=== PATIENT | female | born 1995 | race Caucasian/White ===

== ENCOUNTER 2020-03-07 23:51 | Emergency (ER) | payer MEDICAID ==
[~2020-03-07] VITALS: Ht 152.4 cm; Wt 50.0 kg
[2020-03-08] MEDS ORDERED: SODIUM CHLORIDE 0.9% 1,000 ML IV ONE (00:25)
[2020-03-08] MEDS ORDERED: BACITRACIN ZINC OINT UDPKT TOP ONE (00:30)
[2020-03-08] MEDS ORDERED: TETANUS, DIPHTHERIA, PERTUSSIS VAC/PF 0.5ML (>7YR OLD) IM ONE (00:30)
[2020-03-08] MEDS ORDERED: ACETAMINOPHEN 325MG TABLET PO ONE (00:30)
[2020-03-08] MEDS ORDERED: LIDOCAINE 1%/EPI 1:100,000 10 ML VIAL IJ ONE (00:30)
[2020-03-08 00:45] VITALS: BP 102/40
[2020-03-08] MEDS ORDERED: LIDOCAINE HCL/EPINEPHRINE 1%-EPI 1:100,000 20 ML VIAL INFIL NR (00:45)
[2020-03-08 00:52] LABS: BASOPHILS % 0.6 % (0.0-2.0); EOSINOPHILS % 0.8 % (0.0-5.0); HEMATOCRIT. 42.4 % (36.0-48.0); HEMOGLOBIN. 14.7 g/dL (12.0-16.0); LYMPHOCYTES % 25.3 % (20.0-50.0); MEAN CORPUSCULAR HEMOGLOBIN 31.7 pg (28.0-32.0); MEAN CORPUSCULAR VOLUME 91.6 fL (81.0-99.0); MEAN PLATELET VOLUME 9.8 fl (7.4-10.4); MONOCYTES % 5.1 % (2.0-8.0); NEUTROPHILS % 68.2 % (40.0-76.0); PLATELET 228 x1000/uL (130-400); RED BLOOD CELL COUNT 4.63 mill/uL (4.2-5.4); RED CELL DISTRIBUTION WIDTH 13.6 % (11.6-14.6)
[2020-03-08 01:00] LABS: CHLORIDE 107 mEq/L (98-107)
[2020-03-08 01:08] LABS: HCG SCREEN NEGATIVE
== END 2020-03-08 03:04 | disposition home or self-care (01) ==
LOC: ER 23:51
DX: S01.81XA Laceration without foreign body of other part of head, initial encounter (principal); R55 Syncope and collapse; M25.521 Pain in right elbow; W18.39XA Other fall on same level, initial encounter; Y93.89 Activity, other specified; Y92.89 Other specified places as the place of occurrence of the external cause; Y99.8 Other external cause status; Z98.890 Other specified postprocedural states
CPT/HCPCS: 12011; 36415; 73080; 80053; 81025; 84703; 85025; 90471; 90715; 93005; 96360; 99285; J3490; J7030

== ENCOUNTER 2023-08-06 18:20 | Emergency (ER) | payer MEDICAID ==
[~2023-08-06] VITALS: Ht 152.4 cm; Wt 50.0 kg
[2023-08-06 18:36] VITALS: BP 154/77; PULSE 110; RESP 16; TEMP 98.5; O2SAT 100
[2023-08-06] MEDS ORDERED: BENZ5.1G TOP (19:57)
== END 2023-08-06 20:29 | disposition home or self-care (01) ==
LOC: ER 18:20
DX: K12.0 Recurrent oral aphthae (principal)
CPT/HCPCS: 99283

== ENCOUNTER 2024-04-12 15:18 | Emergency (ER) | payer MEDICAID ==
[~2024-04-12] VITALS: Ht 149.9 cm; Wt 46.7 kg
[~2024-04-12 15:18] MED LIST: BENZ5.1G TOP
[2024-04-12 15:37] VITALS: O2SAT 99
[2024-04-12 18:14] LABS: CLARITY URINE CLOUDY (CLEAR); COLOR URINE YELLOW (YELLOW); GLUCOSE URINE NEGATIVE (NEGATIVE); KETONES URINE 2+ (NEGATIVE); LEUKOCYTE ESTERASE URINE 2+ (NEGATIVE); NITRITE URINE POSITIVE (NEGATIVE); OCCULT BLOOD URINE 3+ (NEGATIVE); PROTEIN URINE 2+ (NEGATIVE); UROBILINOGEN URINE 0.2 E.U./dL (0.2-1.0)
[2024-04-12] MEDS ORDERED: NITR-87 MT (18:24)
[2024-04-12] MEDS ORDERED: PHEN-815 MT (18:24)
[2024-04-12 18:46] LABS: BACTERIA URINE 1+; SQUAMOUS EPITHELIAL CELL URINE 1+ /lpf (RARE/1+)
[2024-04-12 18:49] VITALS: BP 127/65; PULSE 71; RESP 16; TEMP 98.1
== END 2024-04-12 18:51 | disposition home or self-care (01) ==
LOC: ER 15:18
DX: N30.00 Acute cystitis without hematuria (principal)
CPT/HCPCS: 81003; 99283

== ENCOUNTER 2025-09-10 15:07 | Emergency (ER) | payer MEDICAID ==
[~2025-09-10] VITALS: Ht 152.4 cm; Wt 49.0 kg
[~2025-09-10 15:07] MED LIST changes: +NITR-87 MT; +PHEN-815 MT
[2025-09-10 15:17] VITALS: O2SAT 98
[2025-09-10] MEDS: IBUPROFEN 600MG TABLET PO ONE (18:00)
[2025-09-10 18:56] LABS: CLARITY URINE CLEAR (CLEAR); COLOR URINE YELLOW (YELLOW); GLUCOSE URINE NEGATIVE (NEGATIVE); KETONES URINE NEGATIVE (NEGATIVE); LEUKOCYTE ESTERASE URINE TRACE (NEGATIVE); NITRITE URINE NEGATIVE (NEGATIVE); OCCULT BLOOD URINE TRACE (NEGATIVE); PH URINE 6.5 (4.5-8.0); PROTEIN URINE NEGATIVE (NEGATIVE); SPECIFIC GRAVITY URINE 1.001 (1.005-1.030); UROBILINOGEN URINE 0.2 E.U./dL (0.2-1.0)
[2025-09-10 19:12] LABS: BACTERIA URINE RARE; RBC URINE NONE SEEN /hpf (0-2); SQUAMOUS EPITHELIAL CELL URINE FEW /lpf (RARE/1+)
[2025-09-10] MEDS ORDERED: TOPUD MT (19:40)
[2025-09-10] MEDS ORDERED: ACYC-58 MT (19:40)
[2025-09-10] MEDS ORDERED: DOXY100C5 MT (19:40)
[2025-09-10] MEDS: AZITHROMYCIN 500 MG TABLET PO ONE (20:06)
[2025-09-10] MEDS: GENTAMICIN SULF 40MG/ML 2ML VIAL IM ONE (20:07)
[2025-09-10] MEDS: ONDANSETRON 4MG ODT PO ONE (20:07)
[2025-09-10 20:17] VITALS: BP 138/81; PULSE 103; RESP 18; O2SAT 99
[2025-09-10 20:50] LABS: HCG SCREEN NEGATIVE
[2025-09-12 04:07] LABS: HSV TYPE 2 SPECIFIC AB IGG Non Reactive (Non Reactive)
[2025-09-13 04:11] LABS: CHLAMYDIA TRACHOMATIS NAA Negative (Negative); NEISSERIA GONORRHOEAE NAA Negative (Negative)
== END 2025-09-10 20:17 | disposition home or self-care (01) ==
LOC: ER 15:07
DX: A60.09 Herpesviral infection of other urogenital tract (principal); Z11.3 Encounter for screening for infections with a predominantly sexual mode of transmission; N89.8 Other specified noninflammatory disorders of vagina; Z79.899 Other long term (current) drug therapy; Z88.1 Allergy status to other antibiotic agents
CPT/HCPCS: 86695; 86696; 87491; 87591; 81003; 81025; 84703; 86592; 87210; 36415; 96372; 99284; Q0162; J1580; Z7610 ×2